=== PATIENT | male | born 1980 | race Caucasian/White ===

== ENCOUNTER 2021-08-27 06:49 | Emergency (ER) | payer BC ==
--- OUTSIDE RECORDS SUMMARY | 2021-08-27 06:51 | XMS REPORT | Continuity of Care Document ---
:1980 Author Organization [facility] t Address [facility] [address] [place] [address] Care Team Providers Name Role Phone Lab, Fam Pob I Attending Clinician Unavailable Robert RIBERA Attending Clinician ROBERT Attending Clinician Unavailable [place] BRIZUELA Attending Clinician Pcp, Does Not Have A Attending Clinician Licha Gilbert Attending Clinician Doctor Unassigned, Name Attending Clinician Unavailable JULIET, Licha Attending Clinician Unavailable Payers Payer Name Policy Type Policy Number Effective Date Expiration Date S [facility] [id number] 2017 00:00:00 Problems This patient has no known problems. Allergies, Adverse Reactions, Alerts Allergy Allergy Status Severity Reaction(s) Onset Inactive Treating Comm ents Source Name Type Date Date Clinician Sulfa Propensi Active Unknown - 2020-0 Unive rs (Sulfona ty to See comments 12-28 it y of mide adverse 00:00: [place] Antibiot reaction 00 Medica l ics) s Branch Azithrom Propensi Active Unknown - 2020-0 Uni vers ycin ty to See comments 12-28 ity of adverse 00:00: [place] reaction 00 Medical s Branch AZITHROM DRUG Active Unknown-Cmnt 2020-0 Un efra YCIN INGREDI 12-28 ity of 00:00: [place] 00 Medical Branch SULFA Drug Active Unknown-Cmnt 2020-0 Univ ers (SULFONA Class - ity of MIDE 00:00: [place] ANTIBIOT 00 Medical ICS) Branch NO KNOWN Drug Active Univers ALLERGIE Class ity of S [facility] Social History Social Habit Start Date Stop Date Quantity Comments Source Exposure to Yes [facility] SARS-CoV-2 (event) Medica l Branch Sex Assigned At [birth year] [facility] 00:00:00 00:00:00 Medical Branch Smoking Status Start Date Stop Date Source Unknown if ever smoked [facility] Medications Ordered Filled Start Stop Current Ordering Indication Dosage Frequency Signature Comments Components Source Medication Medication Date Date Medication? Clinician (SIG) Name Name ibuprofen 2020-0 Yes [id number] 800mg Take 1 Univers 800 mg 7-19 tablet by ity of tablet 00:00: mouth [place] 00 every 8 Medical (eight) Branch hours. ondansetron 2020-0 Yes [id number] 4mg Take 1 Univers 4 mg 7-19 tablet by ity of disintegrat 00:00: mouth [place] ing tablet 00 every 4 Medica l (four) Branch hours as needed for Nausea and Vomiting (N/V). ibuprofen 2019-0 Yes [id number] 800mg Take 1 Univers 800 mg 7-19 tablet by ity of tablet 00:00: mouth [place] 00 every 8 Medical (eight) Branch hours. ondansetron 2019-0 Yes [id number] 4mg Take 1 Univers 4 mg 7-19 tablet by ity of disintegrat 00:00: mouth [place] ing tablet 00 every 4 Medica l (four) Branch hours as needed for Nausea and Vomiting (N/V). Vital Signs Vital Name Observation Time Observation Value Comments Source Systolic blood 2019-12-29 16:00:00 145 mm[Hg] [facility] Diastolic blood 2019-12-29 16:00:00 87 mm[Hg] [facility] Heart rate 2019-12-29 16:00:00 91 /min [facility] Respiratory rate 2019-12-29 16:00:00 20 /min [facility] Oxygen saturation in 2019-12-29 16:00:00 98 /min [facility] Arterial blood by [facility] Pulse oximetry Branch Body temperature 2019-12-29 14:23:00 36.56 Mai [facility] Body weight 2019-12-29 14:23:00 127.007 kg [facility] Procedures Procedure Date / Time Performed Performing Clinician Swati arenas XR ANKLE 3+ VW LEFT 2019-12-29 15:14:58 Lencho Ríos [facility] XR FOOT 3+ VW LEFT 2019-12-29 15:14:58 Lencho Ríos Universi ty of [facility] Encounters Start End Encounter Admission Attending Care Care Encounter Source Date/Time Date/Time Type Type Clinicians Facility Department ID 2021-04-09 Emergency [facility] [id number] Univers 07:31:44 ity of [facility] 2020-08-18 2020-08-18 Laboratory Lab, Adc Fam Pob I [facility] [id number]. [id number] Univers 08:57:47 09:17:47 Only Alicia Jones [facility] [id number] ity of [place] [id number] Brayan as Professio [phone] Me dical nal [address] [place] [facility] 2020-08-18 2020-08-18 Outpatient R [facility] [id number] Univers 09:00:00 09:00:00 [id number] ity of [facility] 2020-08-18 2020-08-18 [place] [id number] Univers 09:00:00 09:00:00 ALICIA ity of [facility] 2019-12-29 2019-12-29 Emergency [facility] [id number] Univers 09:19:42 11:39:00 Lencho Ni [id number] i ty of [place] [id number] [place] [phone] [facility] [address] [place] 2019-12-08 2019-12-08 Telephone Pcp, [facility] [id number] Univers 00:00:00 00:00:00 Patient Health [id number] it y of [place] Not [id number] Profess[place] [phone] Me dical nal [address] [place] [address] One 2019-12-07 2019-12-07 Laboratory Lab, Adc Fam Pob I [facility] 1.2. [id number] Univers 08:57:48 09:17:48 Only Milagro Jonesthia [facility] [id number] ity of [place] [id number] Brayan as Professio [phone] Nh dic[address] Office [facility] 2019-12-07 2019-12-07 Outpatient R [facility] [id number] Univers 09:00:00 09:00:00 [id number] ity of [facility] 2019-12-07 2019-12-07 Outpatient R [facility] [id number] Univers 09:00:00 09:00:00 ity of [facility] 2019-10-26 2019-10-26 Telephone PcpISAC [id number] Univers 00:00:00 00:00:00 Patient ROXANA [id number] it y of Does Not HOSP[place] [id number] [place] [phone] [address] 2019-10-24 2019-10-24 Telephone ISAC [place] [id number] Univers 00:00:00 00:00:00 Meena Hurt ROXANA [id number] i ty of [facility] [id number] Brayan as [phone] [address] 2019-10-24 2019-10-24 Patient Doctor [facility] [id number] Univers 00:00:00 00:00:00 Secure Msg Unassigned, Health [id number] ity of [place] [id number] Brayan as Professio [phone] [address] One 2019-10-23 2019-10-23 Outpatient R JULIET [facility] [id number] Univers 13:50:00 13:50:00 MEENA huitrony of [facility] 2019-10-23 2019-10-23 Ramp Manager Lab, Adc Fam Pob I [facility] 1.2. [id number] Univers 13:00:20 13:10:20 Visit Meena [facility] Health [id number] ity of [place] [id number] Brayan as Professio [phone] Nh dicut nal [address] [place] [address] Office Building One Results Test Description Test Time Test Comments Results Result Sourc e Comments XR ANKLE 3+ VW 2019-12-11 Malleolus avulsion U niversity of LEFT 9 with medial [place] [facility] 16:10:35 talonavicular Branch subluxation with marked softtissue swelling. Superimposed midfoot sprain is not excluded. Questionable anterior process calcaneal fracture and proximal fourthmetatarsal fracture. EXAM: XR ANKLE 3+ VW LEFT, EXAM: XR FOOT 3+ VW LEFT HISTORY: ankle injury COMPARISON: None FINDINGS: Imaging of the foot and ankle demonstrates osseous avulsions distal tolateral malleolus with overlying soft tissue swelling. Anterior joint linesoft tissue swelling is also seen. Osseous avulsions are seen at the levelof the medial talus. There is lateral uncoverage of the talar head.Cortical irregularity is seen over the lateral wall of the calcaneal body.Ill-defined lucencies extend through the anterior process and the fourthmetatarsal bases. [facility], Radiant Results Inft User - 12/29/2019 11:11 AM CDTEXAM:XR ANKLE 3+ VW LEFT,EXAM:XR FOOT 3+ VW LEFTHISTORY:ankle injury COMPARISON:NoneFINDIN GS: Imaging of the foot and ankle demonstrates osseous avulsions distal tolateral malleolus with overlying soft tissue swelling. Anterior joint linesoft tissue swelling is also seen. Osseous avulsions are seen at the levelof the medial talus. There is lateral uncoverage of the talar head.Cortical irregularity is seen over the lateral wall of the calcaneal body.Ill-defined lucencies extend through the anterior process and the fourthmetatarsal bases.IMPRESSIONMalle olus avulsion with medial talonavicular subluxation with marked softtissue swelling. Superimposed midfoot sprain is not excluded.Questionable anterior process calcaneal fracture and proximal fourthmetatarsal fracture. XR FOOT 3+ VW 2019-12-11 Malleolus avulsion Un iversity of LEFT 9 with [facility] 16:10:35 talonavicular Branch subluxation with marked softtissue swelling. Superimposed midfoot sprain is not excluded. Questionable anterior process calcaneal fracture and proximal fourthmetatarsal fracture. EXAM: XR ANKLE 3+ VW LEFT, EXAM: XR FOOT 3+ VW LEFT HISTORY: ankle injury COMPARISON: None FINDINGS: Imaging of the foot and ankle demonstrates osseous avulsions distal tolateral malleolus with overlying soft tissue swelling. Anterior joint linesoft tissue swelling is also seen. Osseous avulsions are seen at the levelof the medial talus. There is lateral uncoverage of the talar head.Cortical irregularity is seen over the lateral wall of the calcaneal body.Ill-defined lucencies extend through the anterior process and the fourthmetatarsal bases. [facility], Radiant Results Inft User - 12/29/2019 11:11 AM CDTEXAM:XR ANKLE 3+ VW LEFT,EXAM:XR FOOT 3+ VW LEFTHISTORY:ankle injury COMPARISON:NoneFINDIN GS: Imaging of the foot and ankle demonstrates osseous avulsions distal tolateral malleolus with overlying soft tissue swelling. Anterior joint linesoft tissue swelling is also seen. Osseous avulsions are seen at the levelof the medial talus. There is lateral uncoverage of the talar head.Cortical irregularity is seen over the lateral wall of the calcaneal body.Ill-defined lucencies extend through the anterior process and the fourthmetatarsal bases.IMPRESSIONMalle olus avulsion with medial talonavicular subluxation with marked softtissue swelling. Superimposed midfoot sprain is not excluded.Questionable anterior process calcaneal fracture and proximal fourthmetatarsal fracture.
[2021-08-27 07:28] LABS: Absolute Lymphocytes (CBC) 1.9 K/uL (0.7-4.9); Hematocrit 42.5 % (39.6-49.0); MPV 7.1 fL (7.6-11.3); RBC Red Blood Cell Count 4.73 M/uL (4.33-5.43)
[2021-08-27 07:49] LABS: BUN Blood Urea Nitrogen 15 mg/dL (7-18); Bicarbonate 27 mmol/L (21-32); Glucose Level 101 mg/dL (74-106); Sodium Level 140 mmol/L (136-145); Troponin High Sensitivity < 3.00 pg/mL (<58.9)
--- NOTE | 2021-08-27 08:10 | RAD REPORT ---
EXAM DESCRIPTION: RAD - Chest Single View - 08/27/2021 7:44 am CLINICAL HISTORY: CHEST PAIN COMPARISON: Portable chest 09/13/2010 TECHNIQUE: AP portable chest image was obtained 08/27/2021 7:44 am . FINDINGS: Lungs are clear. Heart and vasculature are normal. No measurable pleural effusion and no p neumothorax. No acute bony abnormality seen. No acute aortic findings suspected. IMPRESSION: No acute cardiopulmonary process. No suspicious change from comparison.
--- NOTE | 2021-08-27 08:13 | EDPHYS ---
Physician Documentation [facility] Name: Maikel Gaxiola Age: 40 yrs Sex: Male : 1980 Arrival Date: 08/27/2021 Time: 06:57 Bed 7 Private MD: ED Physician Aj Damon HPI: 08/27 07:31 This 40 yrs old Male presents to ER via Ambulatory with complaints of Palpitations. jr8 07:31 The patient presents with a history of heart racing. Context: The symptoms occur at jr8 rest. Onset: The symptoms/episode began/occurred acutely, today. Duration: The patient or guardian reports multiple episodes, that are intermittent. Modifying factors: The symptoms are aggravated by nothing. The symptoms are alleviated by nothing. Associated signs and symptoms: Pertinent positives: chest pain, SOB. Severity of symptoms: At their worst the symptoms were moderate in the emergency department the symptoms have resolved. The patient has not experienced similar symptoms in the past. The patient has not recently seen a physician. Historical: - Allergies: 07:11 Sulfa (Sulfonamide Antibiotics); ll1 07:11 Bactrim; ll1 07:11 Erythromycin; ll1 - PMHx: 07:11 Asthma; ll1 - PSHx: 07:11 None; ll1 - Immunization history:: Client reports having NOT received the Covid vaccine. - Social history:: Smoking status: Patient denies any tobacco usage or history of. ROS: 07:31 Eyes: Negative for injury, pain, redness, and discharge, ENT: Negative for injury, jr8 pain, and discharge, Neck: Negative for injury, pain, and swelling, Abdomen/GI: Negative for abdominal pain, nausea, vomiting, diarrhea, and constipation, Back: Negative for injury and pain, MS/Extremity: Negative for injury and deformity, Skin: Negative for injury, rash, and discoloration, Neuro: Negative for headache, weakness, numbness, tingling, and seizure. 07:31 Cardiovascular: Positive for chest pain, palpitations. 07:31 Respiratory: Positive for shortness of breath. Exam: 07:31 Constitutional: This is a well developed, well nourished patient who is awake, alert, jr8 and in no acute distress. Neck: Trachea midline, no thyromegaly or masses palpated, and no cervical lymphadenopathy. Supple, full range of motion without nuchal rigidity, or vertebral point tenderness. No Meningismus. Chest/axilla: Normal chest wall appearance and motion. Nontender with no deformity. No lesions are appreciated. Cardiovascular: Regular rate and rhythm with a normal S1 and S2. No gallops, murmurs, or rubs. Normal PMI, no JVD. No pulse deficits. Respiratory: Lungs have equal breath sounds bilaterally, clear to auscultation and percussion. No rales, rhonchi or wheezes noted. No increased work of breathing, no retractions or nasal flaring. Abdomen/GI: Soft, non-tender, with normal bowel sounds. No distension or tympany. No guarding or rebound. No evidence of tenderness throughout. Skin: Warm, dry with normal turgor. Normal color with no rashes, no lesions, and no evidence of cellulitis. MS/ Extremity: Pulses equal, no cyanosis. Neurovascular intact. Full, normal range of motion. Neuro: Awake and alert, GCS 15, oriented to person, place, time, and situation. Cranial nerves II-XII grossly intact. Motor strength 5/5 in all extremities. Sensory grossly intact. 07:31 ECG was reviewed by the Attending Physician. jr8 Vital Signs: 07:01 BP 141 / 93; Pulse 70; Resp 17; Temp 97.6; Pulse Ox 99% ; Weight 133.81 kg; Height 6 ll1 ft. 3 in. (190.50 cm); Pain 5/10; 08:35 BP 124 / 83; Pulse 64; Resp 18 S; Pulse Ox 98% on R/A; aa5 07:01 Body Mass Index 36.87 (133.81 kg, 190.50 cm) ll1 MDM: 07:23 Patient medically screened. jr8 08:10 Data reviewed: vital signs, nurses notes, lab test result(s), EKG, radiologic studies, jr8 plain films. Data interpreted: Pulse oximetry: on room air is 99 %. Interpretation: normal. Counseling: I had a detailed discussion with the patient and/or guardian regarding: the historical points, exam findings, and any diagnostic results supporting the discharge/admit diagnosis, lab results, radiology results, the need for outpatient follow up, a process design engineer, to return to the emergency department if symptoms worsen or persist or if there are any questions or concerns that arise at home. ED course: Discussed with patient that at this point there were no significant cardiac findings on labs, EKG, or imaging. Recommended following up with cardiology for the time being for possible Holter monitoring and for further evaluation of the palpitations that he felt today. If at any point between now and then he has it again or feels worse he can come back to the emergency room for further evaluation. Patient good with this plan at this time.. 08/27 07:14 Order name: Basic Metabolic Panel; Complete Time: 07:56 vg1 08/27 07:14 Order name: CBC with Diff; Complete Time: 07:33 vg1 08/27 07:14 Order name: Troponin HS; Complete Time: 07:56 vg1 08/27 07:14 Order name: XRAY Chest (1 view); Complete Time: 08:12 vg1 08/27 07:14 Order name: EKG; Complete Time: 07:15 vg1 08/27 07:23 Order name: Magnesium; Complete Time: 07:56 jr8 08/27 07:14 Order name: Cardiac monitoring; Complete Time: 07:15 vg1 08/27 07:14 Order name: EKG - Nurse/Tech; Complete Time: 07:15 vg1 08/27 07:14 Order name: IV Saline Lock; Complete Time: 07:15 vg1 08/27 07:14 Order name: Labs collected and sent; Complete Time: 07:17 vg1 08/27 07:14 Order name: O2 Per Protocol; Complete Time: 07:15 vg1 08/27 07:14 Order name: O2 Sat Monitoring; Complete Time: 07:15 vg1 EC:31 Rate is 69 beats/min. Rhythm is regular, Sinus Rhythm. QRS [place] is Normal. AR interval jr8 is normal at 164 msec. QRS interval is normal at 90 msec. QT interval is normal at 400 msec. No Q waves. T waves are Normal. No ST changes noted. Clinical impression: Normal ECG. Interpreted by me. Reviewed by me. Administered Medications: No medications were administered Disposition: 08/28 07:34 Co-signature as Attending Physician, Aj Damon MD I agree with the assessment and kdr plan of care. Disposition Summary: 08/27/21 08:12 Discharge Ordered Location: Home jr8 Problem: new jr8 Symptoms: have improved jr8 Condition: Stable jr8 Diagnosis - Palpitations jr8 Followup: jr8 - With: Aniket Krishna MD - When: 2 - 3 days - Reason: Recheck today's complaints, Continuance of care, Re-evaluation by your physician Discharge Instructions: - Discharge Summary Sheet jr8 - Palpitations jr8 Forms: - Medication Reconciliation Form jr8 - Thank You Letter jr8 - Antibiotic Education jr8 - Prescription Opioid Use jr8 - Work release form eb Signatures: Dispatcher [employer] EDOR Aj Damon MD MD kdr Roszak, Josh, PA PA jr8 Lyla Edwards, RN RN vg1 Sandie Jacobo RN RN ll1
--- NOTE | 2021-08-27 08:13 | ER ---
Nurse's Notes [facility] Name: Maikel Gaxiola Age: 40 yrs Sex: Male : 1980 Arrival Date: 08/27/2021 Time: 06:57 Bed 7 Private MD: Diagnosis: Palpitations Presentation: 08/27 07:01 Chief complaint: Patient states: Palpitations and chest heaviness noticed at 0530 this ll1 morning. Slight SOB. No cough or fever. Coronavirus screen: Vaccine status: Patient reports being unvaccinated. Client denies travel out of the [place] in the last 14 days. difficulty breathing, shortness of breath, Client presents with at least one sign or symptom that may indicate coronavirus-19. Standard/surgical mask placed on the client. Ebola Screen: Patient denies travel to an Ebola-affected area in the 21 days before illness onset. Initial Sepsis Screen: Does the patient meet any 2 criteria? No. Patient's initial sepsis screen is negative. Does the patient have a suspected source of infection? No. Patient's initial sepsis screen is negative. Risk Assessment: Do you want to hurt yourself or someone else? Patient reports no desire to harm self or others. Onset of symptoms was August 27, 2021. 07:01 Method Of Arrival: Ambulatory ll1 07:01 Acuity: HOWARD 3 ll1 Triage Assessment: 07:04 General: Appears in no apparent distress. Behavior is calm, cooperative, appropriate ll1 for age. Pain: Complains of pain in chest Pain currently is 5 out of 10 on a pain scale. Quality of pain is described as heavy. Neuro: No deficits noted. Cardiovascular: Reports chest pain, shortness of breath, Patient's skin is warm and dry. Respiratory: Reports shortness of breath Airway is patent Trachea midline Respiratory effort is even, unlabored, Respiratory pattern is regular, symmetrical. Historical: - Allergies: 07:11 Sulfa (Sulfonamide Antibiotics); ll1 07:11 Bactrim; ll1 07:11 Erythromycin; ll1 - PMHx: 07:11 Asthma; ll1 - PSHx: 07:11 None; ll1 - Immunization history:: Client reports having NOT received the Covid vaccine. - Social history:: Smoking status: Patient denies any tobacco usage or history of. Screenin:17 Abuse screen: Denies threats or abuse. Nutritional screening: No deficits noted. vg1 Tuberculosis screening: No symptoms or risk factors identified. Fall Risk No fall in past 12 months (0 pts). No secondary diagnosis (0 pts). IV access (20 points). Ambulatory Aid- None/Bed Rest/Nurse Assist (0 pts). Gait- Normal/Bed Rest/Wheelchair (0 pts) Mental Status- Oriented to own ability (0 pts). Total Conteh Fall Scale indicates No Risk (0-24 pts). Assessment: 07:10 General: Appears in no apparent distress. comfortable, Behavior is calm, cooperative. vg1 Pain: Denies pain. Neuro: Level of Consciousness is awake, alert, obeys commands, Oriented to person, place, time, situation, Denies headache. Cardiovascular: Patient's skin is warm and dry. Parent/caregiver reports patient has had since chest pressure and palpitations that 'feel like flutters' began this morning around 0530; stated 'the pressure and SOB has since resolved'. Respiratory: Airway is patent Respiratory effort is even, unlabored. GI: Patient currently denies nausea, vomiting. : No signs and/or symptoms were reported regarding the genitourinary system. EENT: No signs and/or symptoms were reported regarding the EENT system. Derm: Skin is intact, is healthy with good turgor. Musculoskeletal: Circulation, motion, and sensation intact. 08:40 Reassessment: Patient is alert, oriented x 3, equal unlabored respirations, skin aa5 warm/dry/pink. Vital Signs: 07:01 BP 141 / 93; Pulse 70; Resp 17; Temp 97.6; Pulse Ox 99% ; Weight 133.81 kg; Height 6 ll1 ft. 3 in. (190.50 cm); Pain 5/10; 08:35 BP 124 / 83; Pulse 64; Resp 18 S; Pulse Ox 98% on R/A; aa5 07:01 Body Mass Index 36.87 (133.81 kg, 190.50 cm) ll1 ED Course: 06:57 Patient arrived in ED. wm 07:00 Arm band placed on Patient placed in an exam room, on a stretcher. ll1 07:01 Neal Hays PA is PHCP. jr8 07:01 Aj Damon MD is Attending Physician. jr8 07:02 Jerry, Lyla, RN is Primary Nurse. vg1 07:13 Triage completed. ll1 07:13 Initial lab(s) drawn, by me, sent to lab. Inserted saline lock: 20 gauge in right vg1 antecubital area, using aseptic technique. Blood collected. 07:17 Patient has correct armband on for positive identification. Bed in low position. Call vg1 light in reach. Side rails up X 1. Adult w/ patient. environmental monitoring technician on. Pulse ox on. NIBP on. 07:19 EKG done, by ED staff, reviewed by Neal MURRAY. em1 07:46 XRAY Chest (1 view) In Process Unspecified. EDNH 08:12 Aniket Krishna MD is Referral Physician. jr8 08:40 No provider procedures requiring assistance completed. IV discontinued, intact, aa5 bleeding controlled, No redness/swelling at site. Pressure dressing applied. Administered Medications: No medications were administered Outcome: 08:12 Discharge ordered by MD. jr8 08:40 Discharged to home ambulatory. aa5 08:40 Condition: stable 08:40 Discharge instructions given to patient, Instructed on discharge instructions, follow up and referral plans. Demonstrated understanding of instructions, follow-up care. 08:41 Patient left the ED. aa5 Signatures: Dispatcher [employer] EDNH Blayne Shook em1 Luba Howe, RN RN aa5 Neal Hays PA PA jr8 Lyla Edwards, RN RN vg1 Sandie Jacobo RN RN 1 Skylar Molina
[2021-08-27 09:48] VITALS: BP 141/93; TEMP 97.6; O2SAT 99
--- NOTE | 2021-08-30 08:27 | EKG ---
Test Date: 2021-08-27 Test Time: 06:07:28 Newspaper Stuffer: JIMMY MEASUREMENT RESULTS: Intervals: Rate: 69 CT: 164 QRSD: 90 QT: 392 QTc: 420 Tina: P: 22 CT: 164 QRS: 34 T: 66 INTERPRETIVE STATEMENTS: Normal sinus rhythm Normal ECG Compared to ECG 09/13/2010 09:25:41 No significant changes Electronically Signed On 08-30-21 08:22:46 CDT by Aniket Krishna
== END 2021-08-27 08:41 | disposition home or self-care (01) ==
LOC: ER 06:49
DX: R00.2 Palpitations (principal); R07.9 Chest pain, unspecified; Z88.1 Allergy status to other antibiotic agents; Z88.2 Allergy status to sulfonamides; Z88.3 Allergy status to other anti-infective agents
CPT/HCPCS: 36415; 71045; 80048; 83735; 84484; 85025; 93005; 99284